=== PATIENT | male | born 1930 | race Caucasian/White ===

== ENCOUNTER 2017-03-13 23:29 | Inpatient (IN) | payer MEDICARE ==
[~2017-03-13] VITALS: Ht 165.1 cm; Wt 84.8 kg
[2017-03-14] MEDS ORDERED: VANCOMYCIN IV 1,000 MG in IV DEXTROSE 5% 250 ML IV ONE ×2
[2017-03-14 00:17] LABS: BASOPHILS # (AUTO) 0.1 K/uL (0.0-8.0); BASOPHILS % (AUTO) 0.8 % (0.0-2.0); EOSINOPHILS % (AUTO) 0.5 % (0.0-7.0); HEMATOCRIT 30.9 % (40-50); HEMOGLOBIN 10.4 G/DL (14.0-18.0); LYMPHOCYTES # (AUTO) 0.8 K/UL (0.8-4.8); LYMPHOCYTES % (AUTO) 9.4 % (20.5-51.5); MEAN CORPUSCULAR HEMOGLOBIN 30.5 UUG (27.0-31.0); MEAN CORPUSCULAR HGB CONC 34 g/dL (32.0-37.0); MEAN CORPUSCULAR VOLUME 90.9 FL (82.0-92.0); MONOCYTES # (AUTO) 0.8 K/UL (0.1-1.30); MONOCYTES % (AUTO) 9.1 % (0.0-11.0); NEUTROPHILS # (AUTO) 7.2 K/UL (1.8-8.9); NEUTROPHILS % (AUTO) 80.2 % (38.5-71.5); PLATELET COUNT (AUTO) 369 K/UL (150-450); WHITE BLOOD COUNT (AUTO) 8.9 K/UL (4.0-11.2)
[2017-03-14 00:17] LABS: *BILIRUBIN,URIN NEGATIVE (NEGATIVE); *BLOOD, URINE NEGATIVE (NEGATIVE); *CLARITY,URINE CLEAR (CLEAR); *COLOR,URINE YELLOW (YELLOW); *KETONES,URINE NEGATIVE (NEGATIVE); *PROTEIN,URINE NEGATIVE (NEGATIVE); *UROBILINOGEN,URINE 0.2 E.U./dl (NORMAL); LEUKOCYTE ESTERASE ,URINE NEGATIVE (NEGATIVE); NITRITE, URINE NEGATIVE (NEGATIVE); UGLUCOSE NEGATIVE (NEGATIVE)
[2017-03-14 00:20] LABS: CARBON DIOXIDE 36 mmol/L (21-32); CHLORIDE 101 mmol/L (98-107); CREATININE 1.3 mg/dL (0.6-1.3); GLUCOSE 115 mg/dL (74-106); POTASSIUM 3.9 mmol/L (3.5-5.1); UREA NITROGEN, BLOOD 34 mg/dL (7-18)
[2017-03-14 00:23] LABS: BACTERIA,URINE FEW /HPF (NONE SEEN); RBC,URINE 0-3 /HPF (0-3); SQUAMOUS EPITHELIAL CELL,UR FEW /HPF (NONE SEEN); WBC,URINE 0-3 /HPF (0-3)
[2017-03-14] MEDS ORDERED: LEVOFLOXACIN 750MG/D5W 150 ML IV ONE ×2 (00:25)
[2017-03-14 00:32] LABS: ALANINE AMINOTRANSFERASE 9 U/L (16-63); ALKALINE PHOSPHATASE 67 U/L (50-136); ASPARTATE AMINOTRANSFERASE 15 U/L (15-37); BILIRUBIN,DIRECT 0.1 mg/dL (0.0-0.2); BILIRUBIN,TOTAL 0.4 mg/dL (0.2-1.0); TOTAL PROTEIN, SERUM 6.4 g/dL (6.4-8.2)
--- NOTE | 2017-03-14 01:05 | NUR ---
Call placed to [facility] Nephrology, Dr. Mckenna will be paged.
[2017-03-14] MEDS ORDERED: AZAT50TA GT (01:18)
[2017-03-14] MEDS ORDERED: METO25TA6 GT (01:18)
[2017-03-14] MEDS ORDERED: ACET-2154 GT (01:18)
[2017-03-14] MEDS ORDERED: BISA10SU61 RC (01:18)
[2017-03-14] MEDS ORDERED: CHLO473M2 MM (01:18)
[2017-03-14] MEDS ORDERED: FAMO40TA7 GT (01:18)
[2017-03-14] MEDS ORDERED: BUME2TAB3 GT (01:18)
[2017-03-14] MEDS ORDERED: CARB-93 GT (01:18)
[2017-03-14] MEDS ORDERED: FERR-58 GT (01:18)
[2017-03-14] MEDS ORDERED: QUET25TA GT (01:18)
[2017-03-14] MEDS ORDERED: NA P133E RC (01:18)
[2017-03-14] MEDS ORDERED: ASPI-1169 GT (01:18)
[2017-03-14] MEDS ORDERED: MULT1CAP34 GT (01:18)
[2017-03-14] MEDS ORDERED: MAGN400O6 GT (01:18)
[2017-03-14] MEDS ORDERED: PYRI60SY GT (01:18)
--- NOTE | 2017-03-14 01:37 | NUR ---
2nd call placed to [facility] Nephrology, Dr. Mckenna will be paged.
[2017-03-14] MEDS ORDERED: VANCOMYCIN IV 200 ML ONE (01:43)
--- NOTE | 2017-03-14 01:45 | NUR ---
Received report from ED nurse. Patient presented to ED Lower left lobe pneumonia. Patient has #20g (R) AC IV access. Patient is telemetry (Hx: Atrial fibrillation).
--- NOTE | 2017-03-14 02:22 | NUR ---
Pt. admitted to TELE, under care of Dr. Mckenna. Belongs List completed
--- NOTE | 2017-03-14 02:32 | NUR ---
Patient transferred onto unit awake & oriented x4. Patients respirations are clear and unlabored. Patient is able to verbalize needs. Patients skin is intact. PERRLA. No pain or discomfort reported by patient when asked. No distress noted. Patients is at bedside. Vital signs WNL. Trach site is clean and dry. G-tube site is clean, dry, and dressed. Bed is in lowest position with 2/4 siderails up for safety. Call light within reach. Will continue to monitor
[2017-03-14 02:34] VITALS: BP 113/59
[2017-03-14] MEDS ORDERED: NORMAL SALINE FLUSH 10 ML DISP.SYRIN IV PRN (03:15)
[2017-03-14] MEDS ORDERED: ACETAMINOPHEN 325 MG TABLET PO PRN (03:15)
[2017-03-14] MEDS ORDERED: PIPERACILLIN/TAZOBACTAM/D5W 50 ML IV ONE (03:56)
[2017-03-14 04:22] VITALS: BP 94/52
[2017-03-14] MEDS: PIPERACILLIN/TAZOBACTAM/D5W 3.375 G in PREMIXED 1 EACH IV SCH ×3 (05:30→21:33)
[2017-03-14] MEDS: NORMAL SALINE FLUSH 10 ML DISP.SYRIN IV SCH ×3 (06:00→22:57)
[2017-03-14 06:44] LABS: BASOPHILS % (AUTO) 0.2 % (0.0-2.0); EOSINOPHILS # (AUTO) 0.1 K/uL (0.0-0.7); EOSINOPHILS % (AUTO) 1.6 % (0.0-7.0); HEMATOCRIT 29.3 % (40-50); HEMOGLOBIN 9.6 G/DL (14.0-18.0); LYMPHOCYTES # (AUTO) 0.7 K/UL (0.8-4.8); MEAN CORPUSCULAR HEMOGLOBIN 30.3 UUG (27.0-31.0); MEAN CORPUSCULAR HGB CONC 33 g/dL (32.0-37.0); MEAN CORPUSCULAR VOLUME 91.9 FL (82.0-92.0); MONOCYTES # (AUTO) 0.8 K/UL (0.1-1.30); MONOCYTES % (AUTO) 11.5 % (0.0-11.0); NEUTROPHILS # (AUTO) 5.5 K/UL (1.8-8.9); NEUTROPHILS % (AUTO) 76.7 % (38.5-71.5); PLATELET COUNT (AUTO) 330 K/UL (150-450); RED BLOOD CELL COUNT(AUTO) 3.19 MIL/UL (4.7-6.1); WHITE BLOOD COUNT (AUTO) 7.1 K/UL (4.0-11.2)
[2017-03-14 07:02] LABS: ALANINE AMINOTRANSFERASE 12 U/L (16-63); ALKALINE PHOSPHATASE 57 U/L (50-136); ASPARTATE AMINOTRANSFERASE 17 U/L (15-37); BILIRUBIN,TOTAL 0.5 mg/dL (0.2-1.0); CARBON DIOXIDE 35 mmol/L (21-32); CHLORIDE 102 mmol/L (98-107); CREATININE 1.2 mg/dL (0.6-1.3); GLUCOSE 108 mg/dL (74-106); POTASSIUM 3.7 mmol/L (3.5-5.1); TOTAL PROTEIN, SERUM 6.1 g/dL (6.4-8.2); UREA NITROGEN, BLOOD 33 mg/dL (7-18)
[2017-03-14] MEDS ORDERED: FLEET ENEMA 133 ML BOTTLE RC PRN (08:00)
[2017-03-14] MEDS ORDERED: ACETAMINOPHEN 325 MG TABLET GT SCH (08:00)
[2017-03-14] MEDS ORDERED: MAGNESIUM HYDROXIDE 30 ML LIQUID UDC GT PRN (08:00)
[2017-03-14] MEDS ORDERED: BISACODYL 10 MG SUPP.RECT RC PRN (08:00)
--- NOTE | 2017-03-14 08:00 | NUR ---
Awake, alert, oriented x 4,on moderate high back rest. Trach with valve intact, not in distress. GT clamped. at bedside, supportive.
[2017-03-14] MEDS ORDERED: FAMOTIDINE 20 MG TABLET GT SCH (09:00)
[2017-03-14] MEDS: ASPIRIN 81 MG TAB.CHEW GT SCH (09:32)
[2017-03-14] MEDS: BUMETANIDE 1 MG TABLET GT SCH (09:32)
[2017-03-14] MEDS: FAMOTIDINE 20 MG TABLET GT SCH (09:33)
[2017-03-14] MEDS: QUETIAPINE FUMARATE 25 MG TABLET GT SCH ×2 (09:33→17:21)
[2017-03-14] MEDS: METOPROLOL TARTRATE 25 MG TABLET GT SCH ×2 (09:33→17:00)
[2017-03-14] MEDS: FERROUS SULFATE 325 MG TABEC PO SCH ×3 (09:34→17:21)
[2017-03-14] MEDS: AZATHIOPRINE 50 MG TABLET GT SCH ×2 (09:34→17:22)
[2017-03-14] MEDS: MULTIVITAMINS 5 ML LIQUID UDC GT SCH (09:34)
[2017-03-14] MEDS: ENOXAPARIN SODIUM 40 MG/0.4 ML DISP.SYRIN SQ SCH (09:35)
[2017-03-14] MEDS: CARBIDOPA/LEVODOPA 25-100MG TABLET GT SCH ×3 (09:36→21:27)
[2017-03-14] MEDS: CHLORHEXIDINE GLUCONATE 15 ML MOUTHWASH MM SCH ×2 (09:59→17:21)
--- NOTE | 2017-03-14 10:00 | NUR ---
Oral care and trach care done. Medications given through G Tube. G tube care done. With BM. Incontinence care and sponge bath given. Stool Specimen and urine specimen sent to lab
[2017-03-14 11:36] VITALS: BP 90/49
[2017-03-14 11:55] LABS: *BILIRUBIN,URIN NEGATIVE (NEGATIVE); *BLOOD, URINE NEGATIVE (NEGATIVE); *CLARITY,URINE CLEAR (CLEAR); *COLOR,URINE YELLOW (YELLOW); *KETONES,URINE NEGATIVE (NEGATIVE); *PROTEIN,URINE TRACE (NEGATIVE); *UROBILINOGEN,URINE 0.2 E.U./dl (NORMAL); LEUKOCYTE ESTERASE ,URINE NEGATIVE (NEGATIVE); NITRITE, URINE NEGATIVE (NEGATIVE); PH,URINE 6.5 (5.0-8.0); UGLUCOSE NEGATIVE (NEGATIVE)
[2017-03-14 12:04] LABS: *CREATININE,URINE 49.1 mg/dL (30-125); *URINE TOTAL PROTEIN RANDOM 24.6 mg/dL (<150/24HR)
[2017-03-14 12:13] LABS: BACTERIA,URINE FEW /HPF (NONE SEEN); RBC,URINE NONE SEEN /HPF (0-3); SQUAMOUS EPITHELIAL CELL,UR FEW /HPF (NONE SEEN)
[2017-03-14] MEDS: PYRIDOSTIGMINE BROMIDE 60 MG TABLET GT SCH ×2 (13:36→21:33)
--- NOTE | 2017-03-14 14:00 | NUR ---
PT ryanne initiated but not motivated to participate, able to sit to edge of bed with support.
[2017-03-14 15:26] VITALS: BP 90/46
--- NOTE | 2017-03-14 15:58 | NUR ---
CLINICAL PHARMACY NOTE: VANCOMYCIN PHARMACY TO DOSE Subjective: To start vancomycin in this 86 yo gentleman for possible pneumonia Objective: height 170 cm weight 84 kg BUN 33 Scr 1.2 wbc 7.1 temp 98.2 1gm vancomycin given in ER on 03/14 @ 0145 Assessment/Plan Will start vancomycin 1gm q21hrs with estimated trough of 15.29. Scheduled regimen so first gm of vanco given in ER is first dose of regimen, second dose will be due tonight at 2300. Will order trough before 4th scheduled dose (not ordered yet). Will monitor renal function and dose per level if were to become unstable. Will continue to follow.
--- NOTE | 2017-03-14 18:11 | NUR ---
Incontinence care done. Eating dinner. Called Dietary for Fibers[employer] tube feeding tonight.
[2017-03-14 19:00] VITALS: BP 129/55
[2017-03-14] MEDS ORDERED: Z GUARD REMEDY PASTE 57 GM TUBE TOP PRN (19:15)
--- NOTE | 2017-03-14 20:30 | NUR ---
RECEIVED PATIENT IN BED, AWAKE, VERBALLY RESPONSIVE, ON GTF TOLERATE WELL, NO N/V NO DIARRHEA, NO SOB NO CHEST PAIN NOTED. RYTHM IS SINUS PAUSES 86, KEPT CLEAN AND DRY TURN AND REPOSITION. CONT TO MONITOR.
[2017-03-14] MEDS: FIBERSOURCE HN 1000ML LIQUID GT PRN (21:00)
[2017-03-14] MEDS: LACTOBACILLUS RHAMNOSUS GG 1 EACH CAPSULE GT SCH (21:27)
[2017-03-15] MEDS: VANCOMYCIN IV 1 G in PREMIXED 0 EACH IV SCH ×2 (00:01→21:33)
[2017-03-15] MEDS: FIBERSOURCE HN 1000ML LIQUID GT PRN (00:02)
[2017-03-15 00:04] VITALS: BP 138/64
[2017-03-15 04:00] VITALS: BP 111/58
[2017-03-15] MEDS: PIPERACILLIN/TAZOBACTAM/D5W 3.375 G in PREMIXED 1 EACH IV SCH ×3 (06:06→23:19)
[2017-03-15] MEDS: CARBIDOPA/LEVODOPA 25-100MG TABLET GT SCH ×3 (06:06→21:30)
[2017-03-15] MEDS: PYRIDOSTIGMINE BROMIDE 60 MG TABLET GT SCH ×3 (06:06→21:31)
[2017-03-15] MEDS: NORMAL SALINE FLUSH 10 ML DISP.SYRIN IV SCH ×3 (06:07→21:31)
[2017-03-15 06:38] LABS: IRON, SERUM 28 ug/dL (50-175)
--- NOTE | 2017-03-15 06:44 | NUR ---
PATIENT SLEPT MOST OF THE NIGHT, ON GTF TOLERATE WELL NO NAUSEA NO VOMITTING NOTED, NO DIARRHEA, CONT ABX FOR PNEUMONIA, WITH NO ADVERSE REACTION NOTED, TURN AND REPOSITION, CONT TO MONITOR, RYTHM IS SINUS RYTHM WITH SINUS PAUSES, CONT TO MONITOR, NO SOB NO CHEST PAIN. CONT ON O2 2LITER NC. SAT WNL.
[2017-03-15 07:07] LABS: CARBON DIOXIDE 35 mmol/L (21-32); CHLORIDE 100 mmol/L (98-107); CREATININE 1.4 mg/dL (0.6-1.3); GLUCOSE 143 mg/dL (74-106); POTASSIUM 3.6 mmol/L (3.5-5.1); UREA NITROGEN, BLOOD 28 mg/dL (7-18)
[2017-03-15 07:08] LABS: ALANINE AMINOTRANSFERASE 9 U/L (16-63); ALKALINE PHOSPHATASE 64 U/L (50-136); ASPARTATE AMINOTRANSFERASE 16 U/L (15-37); BILIRUBIN,TOTAL 0.5 mg/dL (0.2-1.0); CREATINE KINASE, TOTAL 16 U/L (39-308); FERRITIN 179 ng/mL (26-388); MAGNESIUM 2.1 mg/dL (1.8-2.4); PHOSPHOROUS 4.4 mg/dL (2.5-4.9)
[2017-03-15 07:18] LABS: BASOPHILS % (AUTO) 0.1 % (0.0-2.0); EOSINOPHILS # (AUTO) 0.3 K/uL (0.0-0.7); EOSINOPHILS % (AUTO) 4.7 % (0.0-7.0); HEMATOCRIT 27.6 % (40-50); HEMOGLOBIN 9.3 G/DL (14.0-18.0); LYMPHOCYTES # (AUTO) 0.3 K/UL (0.8-4.8); LYMPHOCYTES % (AUTO) 4.9 % (20.5-51.5); MEAN CORPUSCULAR HEMOGLOBIN 30.6 UUG (27.0-31.0); MEAN CORPUSCULAR HGB CONC 34 g/dL (32.0-37.0); MEAN CORPUSCULAR VOLUME 91.2 FL (82.0-92.0); MONOCYTES # (AUTO) 0.4 K/UL (0.1-1.30); MONOCYTES % (AUTO) 6.1 % (0.0-11.0); NEUTROPHILS % (AUTO) 84.2 % (38.5-71.5); PLATELET COUNT (AUTO) 374 K/UL (150-450); RED BLOOD CELL COUNT(AUTO) 3.03 MIL/UL (4.7-6.1)
[2017-03-15] MEDS: ASPIRIN 81 MG TAB.CHEW GT SCH (08:32)
[2017-03-15] MEDS: LACTOBACILLUS RHAMNOSUS GG 1 EACH CAPSULE GT SCH ×2 (08:32→21:30)
[2017-03-15] MEDS: FERROUS SULFATE 325 MG TABEC PO SCH ×3 (08:33→17:34)
[2017-03-15] MEDS: FAMOTIDINE 20 MG TABLET GT SCH (08:33)
[2017-03-15] MEDS: QUETIAPINE FUMARATE 25 MG TABLET GT SCH ×2 (08:33→17:34)
[2017-03-15] MEDS: BUMETANIDE 1 MG TABLET GT SCH (08:33)
[2017-03-15] MEDS: METOPROLOL TARTRATE 25 MG TABLET GT SCH ×2 (08:34→17:00)
--- NOTE | 2017-03-15 09:00 | NUR ---
GASTROSTOMY TUBE REMAINS INTACT AND PATIENT SERVED HIS BREAKFAST AND FED HIMSELF AND TOLERATED WELL. DUE MEDICATIONS WAS GIVEN THROUGH THE GT.NO GASTRIC RESIDUAL AT THIS TIME.REMAIN ON ANTIBIOTICS ORDERED WITH NO ADVERSE OR ALLERGIC REACTIONS AT THIS TIME.MADE COMFORTABLE AND WILL CONTINUE TO OBSERVE.
[2017-03-15] MEDS: AZATHIOPRINE 50 MG TABLET GT SCH ×2 (09:21→17:34)
[2017-03-15] MEDS: CHLORHEXIDINE GLUCONATE 15 ML MOUTHWASH MM SCH ×2 (09:22→17:33)
[2017-03-15] MEDS: MULTIVITAMINS 5 ML LIQUID UDC GT SCH (09:22)
[2017-03-15] MEDS: ENOXAPARIN SODIUM 40 MG/0.4 ML DISP.SYRIN SQ SCH (09:23)
[2017-03-15 11:18] VITALS: BP 109/49
--- NOTE | 2017-03-15 14:50 | NUR ---
CLINICAL PHARMACY NOTE: VANCOMYCIN PHARMACY TO DOSE Subjective: To continue vancomycin in this 86 yo gentleman for possible pneumonia Objective: height 170 cm weight 84 kg BUN 28 Scr 1.4 wbc 7.0 temp 98.4 Assessment/Plan Will continue vancomycin 1gm q21hrs with estimated trough of 15.29. Second dose was given last night at 2300. Will order trough before 4th scheduled dose (not ordered yet). Will monitor renal function and dose per level if were to become unstable. Will continue to follow.
[2017-03-15 16:07] VITALS: BP 95/47
[2017-03-15 19:00] VITALS: BP 119/60
--- NOTE | 2017-03-15 19:00 | NUR ---
RECEIVED IN BED, NO SOB NO CHEST PAIN NOTED, NO COMPLAIN OF PAIN NOTED, ON GTF AND ABX LL PNA WITH NO ADVERSE REACTION NOTED. CONT TO MONITOR.
[2017-03-15] MEDS ORDERED: AZITHROMYCIN IV 500 MG in IV DEXTROSE 5% 250 ML IV SCH (21:15)
[2017-03-15] MEDS ORDERED: AZITHROMYCIN 500 MG VIAL IV ONE (21:52)
[2017-03-16 00:04] VITALS: BP 108/51
[2017-03-16 04:00] VITALS: BP 110/60
[2017-03-16] MEDS: NORMAL SALINE FLUSH 10 ML DISP.SYRIN IV SCH ×3 (05:15→21:12)
[2017-03-16] MEDS: CARBIDOPA/LEVODOPA 25-100MG TABLET GT SCH ×3 (05:15→21:11)
[2017-03-16] MEDS: PIPERACILLIN/TAZOBACTAM/D5W 3.375 G in PREMIXED 1 EACH IV SCH ×3 (05:15→23:00)
[2017-03-16] MEDS: PYRIDOSTIGMINE BROMIDE 60 MG TABLET GT SCH ×3 (05:16→21:11)
--- NOTE | 2017-03-16 06:51 | NUR ---
PATIENT SLEPT MOST OF THE NIGHT, NO SOB NO CHEST PAIN NOTED, TOLERATE FEEDING WELL NO N/V NOTED, NO DIARRHEA NOTED, CONT ABX FOR LL PNA WITH NO ADVERSE REACTION NOTED, KEPT CLEAN AND DRY, INCONTINENT OF BOWEL AND BLADDER. CONT TO MONITOR.
--- NOTE | 2017-03-16 08:00 | NUR ---
RECEIVED PATIENT IN BED AWAKE ALERT AND ORIENTED DENIES PAIN OR DISCOMFORTS AT THIS TIME.GT PATENT FLUSHED PER PROTOCOL.REMAIN ON TELEMETRY MONITORING ORDERED WITH NO DISTRESS AT THIS TIME.
[2017-03-16] MEDS: METOPROLOL TARTRATE 25 MG TABLET GT SCH ×2 (08:34→17:10)
[2017-03-16] MEDS: ASPIRIN 81 MG TAB.CHEW GT SCH (08:34)
[2017-03-16] MEDS: LACTOBACILLUS RHAMNOSUS GG 1 EACH CAPSULE GT SCH ×2 (08:34→20:54)
[2017-03-16] MEDS: BUMETANIDE 1 MG TABLET GT SCH (08:34)
[2017-03-16] MEDS: FAMOTIDINE 20 MG TABLET GT SCH (08:34)
[2017-03-16] MEDS: QUETIAPINE FUMARATE 25 MG TABLET GT SCH ×2 (08:34→17:09)
[2017-03-16] MEDS: FERROUS SULFATE 325 MG TABEC PO SCH ×3 (08:35→17:09)
[2017-03-16] MEDS: CHLORHEXIDINE GLUCONATE 15 ML MOUTHWASH MM SCH ×2 (08:35→17:10)
[2017-03-16] MEDS: AZATHIOPRINE 50 MG TABLET GT SCH ×2 (08:35→17:15)
[2017-03-16] MEDS: ENOXAPARIN SODIUM 40 MG/0.4 ML DISP.SYRIN SQ SCH (08:40)
[2017-03-16] MEDS: MULTIVITAMINS 5 ML LIQUID UDC GT SCH (08:52)
[2017-03-16 11:44] VITALS: BP 92/57
--- NOTE | 2017-03-16 12:09 | NUR ---
PATIENT SEEN AND EXAMINED BY DR HENAO WITH NEW ORDERS AND NOTED
[2017-03-16 16:09] VITALS: BP 108/56
--- NOTE | 2017-03-16 17:22 | NUR ---
CLINICAL PHARMACY NOTE: VANCOMYCIN PHARMACY TO DOSE Subjective: To continue vancomycin in this 86 yo gentleman for possible pneumonia Objective: height 170 cm weight 84 kg BUN 28 (8/) Scr 1.4 (8/) wbc 7.0 (8/) temp 98 Vanco trough level: 18.8 Assessment/Plan Since vanco trough level is 18.8 mcg/ml, will change vancomycin 1gm IV q21hrs to vanco 1250mg IVPB q29h with estimated trough of 15 mcg/ml at steady state. 1st dose is due on 03/17 at 0100. Will order trough before 4th scheduled dose (not ordered yet). Will monitor renal function and dose per level if were to become unstable. Will continue to follow.
--- NOTE | 2017-03-16 17:30 | NUR ---
CONTINUE TO TOLERATE ORAL FEEDINGS AND GT FLUSHED AND PATENT NOT IN DISTRESS AT THIS TIME
--- NOTE | 2017-03-16 20:00 | NUR ---
PATIENT AWAKE, ALERT,NOT IN DISTRESS,ORAL CARE AND TRACH CARE DONE, BREATH SOUND CLEAR, TOLERATED O2 AT 2 L/M VIA N/C,TOLERATED TUBE FEEDING AT 50 ML/HR,NO RESIDUAL ,SR ON TELE MONITOR WITH FEW PAUSES,CONTINUE CLOSELY MONITOR.
[2017-03-16] MEDS: FIBERSOURCE HN 1000ML LIQUID GT PRN (20:09)
[2017-03-16 20:33] VITALS: BP 106/43
[2017-03-16] MEDS: Z GUARD REMEDY PASTE 57 GM TUBE TOP SCH (20:57)
[2017-03-16] MEDS ORDERED: AZITHROMYCIN IV 500 MG in IV DEXTROSE 5% 250 ML IV SCH (21:00)
[2017-03-16 23:47] VITALS: BP 106/51
--- NOTE | 2017-03-17 00:16 | NUR ---
VITAL SIGNS STABLE,INCONTINENT OF LARGE PASTE STOOL,SKIN CARE PROVIDED,PATIENT RESTING WELL.
[2017-03-17] MEDS ORDERED: VANCOMYCIN IV 1,250 MG in IV DEXTROSE 5% 500 ML IV SCH (01:00)
[2017-03-17 04:11] VITALS: BP 137/59
[2017-03-17] MEDS: CARBIDOPA/LEVODOPA 25-100MG TABLET GT SCH ×2 (05:24→13:05)
[2017-03-17] MEDS: PIPERACILLIN/TAZOBACTAM/D5W 3.375 G in PREMIXED 1 EACH IV SCH ×2 (05:24→13:05)
[2017-03-17] MEDS: NORMAL SALINE FLUSH 10 ML DISP.SYRIN IV SCH ×2 (05:25→13:06)
[2017-03-17] MEDS: PYRIDOSTIGMINE BROMIDE 60 MG TABLET GT SCH ×2 (05:25→13:06)
--- NOTE | 2017-03-17 06:00 | NUR ---
PATIENT TOLERATED TUBE FEEDING WELL,DRESSING CHANGED TO G TUBE SITE AND TRACHEOSTOMY ,SITE CLEAN,PATIENT ASLEEP , NO RESPIRATORY DISTRESS NOTED.
[2017-03-17 06:42] LABS: BASOPHILS % (AUTO) 0.2 % (0.0-2.0); EOSINOPHILS # (AUTO) 0.3 K/uL (0.0-0.7); EOSINOPHILS % (AUTO) 5.8 % (0.0-7.0); HEMATOCRIT 28.2 % (40-50); HEMOGLOBIN 9.2 G/DL (14.0-18.0); LYMPHOCYTES # (AUTO) 0.6 K/UL (0.8-4.8); LYMPHOCYTES % (AUTO) 11.6 % (20.5-51.5); MEAN CORPUSCULAR HEMOGLOBIN 29.8 UUG (27.0-31.0); MEAN CORPUSCULAR HGB CONC 33 g/dL (32.0-37.0); MEAN CORPUSCULAR VOLUME 91.7 FL (82.0-92.0); MONOCYTES # (AUTO) 0.6 K/UL (0.1-1.30); MONOCYTES % (AUTO) 10.6 % (0.0-11.0); NEUTROPHILS % (AUTO) 71.8 % (38.5-71.5); PLATELET COUNT (AUTO) 398 K/UL (150-450); RED BLOOD CELL COUNT(AUTO) 3.08 MIL/UL (4.7-6.1); WHITE BLOOD COUNT (AUTO) 5.5 K/UL (4.0-11.2)
[2017-03-17 06:55] LABS: ALANINE AMINOTRANSFERASE 10 U/L (16-63); ALKALINE PHOSPHATASE 62 U/L (50-136); ASPARTATE AMINOTRANSFERASE 16 U/L (15-37); BILIRUBIN,TOTAL 0.3 mg/dL (0.2-1.0); CARBON DIOXIDE 36 mmol/L (21-32); CHLORIDE 104 mmol/L (98-107); CREATININE 1.3 mg/dL (0.6-1.3); GLUCOSE 122 mg/dL (74-106); MAGNESIUM 2.3 mg/dL (1.8-2.4); POTASSIUM 3.8 mmol/L (3.5-5.1); UREA NITROGEN, BLOOD 20 mg/dL (7-18)
[2017-03-17] MEDS ORDERED: PIPE3.379 IV (07:23)
[2017-03-17] MEDS ORDERED: LACT1CAP57 GT (07:23)
[2017-03-17] MEDS ORDERED: MULTIVITAMINS,THERAPEUTIC TABLET GT SCH (09:00)
--- NOTE | 2017-03-17 09:00 | NUR ---
PATIENT SEEN BY DR WELLS AND HE IS FOR DISCHARGE TODAY TO [facility] PATIENT AND HIS RADHA IS AWARE.PATIENT WILL CONTINUE ON IV ATB FOR 3 MORE DAYS.
[2017-03-17] MEDS: BUMETANIDE 1 MG TABLET GT SCH (09:10)
[2017-03-17] MEDS: LACTOBACILLUS RHAMNOSUS GG 1 EACH CAPSULE GT SCH (09:10)
[2017-03-17] MEDS: ASPIRIN 81 MG TAB.CHEW GT SCH (09:10)
[2017-03-17] MEDS: QUETIAPINE FUMARATE 25 MG TABLET GT SCH (09:11)
[2017-03-17] MEDS: FERROUS SULFATE 325 MG TABEC PO SCH ×2 (09:11→13:05)
[2017-03-17] MEDS: FAMOTIDINE 20 MG TABLET GT SCH (09:11)
[2017-03-17] MEDS: METOPROLOL TARTRATE 25 MG TABLET GT SCH (09:12)
[2017-03-17] MEDS: CHLORHEXIDINE GLUCONATE 15 ML MOUTHWASH MM SCH (09:15)
[2017-03-17] MEDS: AZATHIOPRINE 50 MG TABLET GT SCH (09:15)
[2017-03-17] MEDS: ENOXAPARIN SODIUM 40 MG/0.4 ML DISP.SYRIN SQ SCH (09:28)
[2017-03-17] MEDS: Z GUARD REMEDY PASTE 57 GM TUBE TOP SCH (09:36)
[2017-03-17 11:55] VITALS: BP 99/43
--- NOTE | 2017-03-17 12:12 | NUR ---
THIS RECORDER SPOKE WITH SHELDON , SENIOR [employer] DEVELOPER AT [facility] [phone], THEY WILL ACCEPT ANASTASIA SULTANA TO RETURN TODAY
--- NOTE | 2017-03-17 12:15 | NUR ---
DR CAST HERE TO SEE PATIENT AND SHE IS AWARE THAT PATIENT WILL BE DISCHARGED TODAY BACK TO [facility] TO CONTINUE HIS IV ANTIBIOTICS FOR 3 MORE DAYS AND SHE STATED OKAY.
--- NOTE | 2017-03-17 13:15 | NUR ---
CALLED [facility] SPOKE WITH [facility]B AND REPORT GIVEN TO HER FOR CONTINUING CARE OF THIS PATIENT.THE AMBULANCE IS SET TO TRANSPORT HIM TO THIS FACILITY AT 1430 TODAY.PATIENT AWARE DISCHARGE INSTRUCTIONS GIVEN TO HIM RE CONTINUATION OF HIS ANTIBIOTICS FOR 3 MORE DAYS AND HE EXPRESSED UNDERSTANDING.
[2017-03-17 15:12] VITALS: BP 95/45
--- NOTE | 2017-03-17 15:20 | NUR ---
PATIENT DISCHARGED PICKED UP BY [facility] IN SATISFACTORY CONDITION WITH DISCHARGE INSTRUCTIONS AND ALL HIS PERSONAL BELONGINGS.
[2017-03-18 03:09] LABS: A/G RATIO 0.9 (0.7-1.7); ALBUMIN 2.5 g/dL (2.9-4.4); ALPHA-1-GLOBULIN 0.4 g/dL (0.0-0.4); ALPHA-2-GLOBULIN 0.9 g/dL (0.4-1.0); BETA GLOBULIN 0.8 g/dL (0.7-1.3); GAMMA GLOBULIN 0.6 g/dL (0.4-1.8); GLOBULIN, TOTAL 2.7 g/dL (2.2-3.9); M-SPIKE Not Observed g/dL (Not Observed)
== END 2017-03-17 15:23 | DRG 871 ==
LOC: ER 23:33 → TELE 03-14 02:02
PROVIDERS: ADMIT Internal Medicine; ATTEND Internal Medicine
DX: A41.9 Sepsis, unspecified organism (principal); J18.9 Pneumonia, unspecified organism; N17.0 Acute kidney failure with tubular necrosis; J91.8 Pleural effusion in other conditions classified elsewhere; J96.10 Chronic respiratory failure, unspecified whether with hypoxia or hypercapnia; E44.0 Moderate protein-calorie malnutrition; D63.8 Anemia in other chronic diseases classified elsewhere; E66.9 Obesity, unspecified; Z68.29 Body mass index [BMI] 29.0-29.9, adult; G70.00 Myasthenia gravis without (acute) exacerbation; R13.10 Dysphagia, unspecified; Z93.1 Gastrostomy status; Z93.0 Tracheostomy status; G20 Parkinson's disease; R65.20 Severe sepsis without septic shock; Z79.899 Other long term (current) drug therapy; K21.9 Gastro-esophageal reflux disease without esophagitis; I48.91 Unspecified atrial fibrillation; E11.9 Type 2 diabetes mellitus without complications; Z96.653 Presence of artificial knee joint, bilateral
CPT/HCPCS: 36415; 70030-TC; 71010; 76770; 83550; 83605; 83735; 83970; 84100; 84155; 84156; 84165; 84300; 85025; 85730; 87040; 87070; 87400; 93005; 97161; A4663; J0456; J1650; J1956; J2543; J3370; J3490; J7030; J7050; J7060; J7500